=== PATIENT | female | born 1940 | race Caucasian/White ===

== ENCOUNTER → 2019-04-12 | Outpatient (CLI) | payer MEDICARE ==
--- NOTE | 2019-04-12 11:27 | CARD ---
MR#: [id number] Date of Study: 04/12/2019 Ordering Physician: MAC SINGH, Referring Physician: MAC SINGH, [place]: Lara Devries APPROVED REPORT EXAM: Two-dimensional and M-mode echocardiogram with Doppler and color Doppler. Other Information Quality : AverageHR: 75bpm INDICATION Dyspnea 2D DIMENSIONS RVDd2.4 (2.9-3.5cm)Left Atrium(2D)3.8 (1.6-4.0cm) IVSd1.3 (0.7-1.1cm)Aortic Root(2D)2.0 (2.0-3.7cm) LVDd4.7 (3.9-5.9cm)LVOT Diameter1.6 (1.8-2.4cm) PWd1.0 (0.7-1.1cm)LVDs2.5 (2.5-4.0cm) FS (%) 45.4 %SV76.9 ml LVEF(%)76.8 (>50%) Aortic Valve AoV Peak Jose.137.7cm/sAoV VTI34.5cm AO Peak GR.7.6mmHgLVOT Peak Jose.110.4cm/s AO Mean GR.4mmHgAVA (VMAX)1.68cm2 Mitral Valve MV E Psgmghqj57.5cm/sMV E Peak Gr.4mmHg MV DECEL [id number] A Hbsaurtt07.8cm/s MV E Mean Gr.1mmHgE/A Ratio0.9 Pulmonary Valve PV Peak Ojqlphll89.7cm/s Tricuspid Valve RAP [id number] Pulmonary Vein S1 Kztdouiu81.1cm/sD2 Umlcbdwn68.4cm/s LEFT VENTRICLE The left ventricle is normal size. There is borderline to mild septal left ventricular hypertrophy. T he left ventricular systolic function is normal. The Ejection Fraction is 55-60%. There is normal LV segmental wall motion. Transmitral Doppler flow pattern is Grade I-abnormal relaxation pattern. RIGHT VENTRICLE The right ventricle is normal size. The right ventricular systolic function is normal. ATRIA The left atrium size is normal. The right atrium size is normal. The interatrial septum is intact wit h no evidence for an atrial septal defect or patent foramen ovale as noted on 2-D or Doppler imaging. AORTIC VALVE The aortic valve is calcified but opens well. Doppler and Color Flow revealed no significant aortic r egurgitation. There is no significant aortic valvular stenosis. MITRAL VALVE The mitral valve is thickened but opens well. Mitral annular calcification is mild. There is no evide nce of mitral valve prolapse. There is no mitral valve stenosis. Doppler and Color-flow revealed trac e mitral regurgitation. TRICUSPID VALVE The tricuspid valve is normal in structure and function. Doppler and Color Flow revealed trace tricus pid regurgitation. There is no tricuspid valve stenosis. PULMONIC VALVE The pulmonic valve is not well visualized. Doppler and Color Flow revealed no pulmonic valvular regur gitation. GREAT VESSELS The aortic root is normal in size. The ascending aorta is normal in size. The IVC is normal in size a nd collapses >50% with inspiration. PERICARDIAL EFFUSION There is no pleural effusion. There is no evidence of significant pericardial effusion. Critical Notification Critical Value: No <Conclusion> The left ventricular systolic function is normal. The Ejection Fraction is 55-60%. There is normal LV segmental wall motion. Transmitral Doppler flow pattern is Grade I-abnormal relaxation pattern. Trace tricuspid regurgitation. There is no evidence of significant pericardial effusion. Signed by : Sotero Cooper, Electronically Approved : 04/12/2019 11:27:29
== END | disposition home or self-care (01) ==
LOC: ECHO 10:27
PROVIDERS: ATTEND Internal Medicine Pulmonary Disease
DX: I08.0 Rheumatic disorders of both mitral and aortic valves (principal)
CPT/HCPCS: 93306